=== PATIENT | male | born 1940 | race Caucasian/White ===

== ENCOUNTER → 2016-02-26 | Outpatient (CLI) | payer OTHER ==
[~2016-02-26] MED LIST: ACET1TAB84 PO; ACET500C6 PO; AMLO-110 PO; AMLO2.5T PO; ASPI81TA28 PO; ATRINS NEB; BECL0.3A INH; BECL1AER5 NAE; CALC-354; CALC500C70 PO; CIPR1TAB11 PO; CYAN10004 PO; DVN80 PO; ERGO500037 PO; FEBU40TA PO; FINA5TAB PO; FLUN0.02; FLV1 PO; FOLI1TAB7 PO; FURO20TA PO; HYDR25SU20 PR; INSDGIPEN SC; INSU100I2 SC; INSUINJ4 SC; IPRA17AE2 INH; LEUP30IN3 IM; METH2.5T PO; OXYB5TAB74 PO; OXYC1TAB3 PO; PRAMCRE2 TOP; PRLSR20 PO; PRS5 PO; TAMS0.4C38 PO; TAMS0.4C59 PO; THEO200T27 PO; VALS320T PO; VTMD1000 PO; [UNRECOGNIZED DRUG - OTHER]
[2016-02-26 09:42] LABS: BASO % 0.3 %; BASO ABS # 0.02 K/uL (0-0.2); COMPLETE YES; EOS % 1.8 %; HEMATOCRIT 43.2 % (42-52); IG% 0.4 %; LYMPH ABS # 1.34 K/uL (1.2-3.4); MEAN CELL VOLUME 87.4 fL (80-100); MEAN CORPUSCULAR HEMOGLOBIN 30.2 pg (25-34); MEAN CORPUSCULAR HGB CONC 34.5 g/dl (32-36); MEAN PLATELET VOLUME 10.5 fL (7.4-10.4); MONO % 6.7 %; NEUT % 70.8 %; PLATELET COUNT 201 K/uL (130-400); RED BLOOD COUNT 4.94 M/uL (4.7-6.1)
[2016-02-26 10:29] LABS: ALT/SGPT 27 U/L (12-78); AST/SGOT 20 U/L (15-37); BLOOD UREA NITROGEN 23 mg/dl (7-18); BUN/CREATININE RATIO 14.1 (10-20); CALCIUM 9.2 mg/dl (8.5-10.1); CARBON DIOXIDE 25 mmol/L (21-32); CHLORIDE 105 mmol/L (98-107); GLUCOSE 265 mg/dl (70-99); POTASSIUM 3.9 mmol/L (3.5-5.1); SODIUM 140 mmol/L (136-145); URINE APPEARANCE CLEAR (CLEAR); URINE BILIRUBIN NEG (NEG); URINE COLOR YELLOW; URINE NITRITE NEG (NEG); UROBILINOGEN NEG (NEG); ZZUR CULT IF INDIC CLEAN CATCH NO
[2016-02-26 10:31] LABS: ALB/GLOB RATIO 1.1 (0.9-2); ALKALINE PHOSPHATASE 91 U/L (45-117)
[2016-02-26 10:33] LABS: MANUAL MICROSCOPIC REQUIRED? NO; REVIEW REQ? NO
== END | disposition home or self-care (01) ==
LOC: C.LAB1850 08:50
PROVIDERS: ATTEND Internal Medicine Pulmonary Disease
DX: I10 Essential (primary) hypertension (principal)

== ENCOUNTER → 2016-03-18 | Day surgery (SDC) | payer OTHER ==
[2016-03-04 13:16] VITALS: BMI 29.0
--- NOTE | 2016-03-04 14:16 | PAT Medication Instructions ---
Service Date Mar 04, 2016. Current Home Medication List Acetaminophen (Acetaminophen), 2 TAB PO QAM Amlodipine (Norvasc), 2.5 MG PO QDD Aspirin (Aspirin Ec), 81 MG PO QPM Beclomethasone Dipropionate (Qvar), 2 PUFFS INH BID Calcium/Vitamin D (Os-Liu 500 Plus D), 1 TAB PO QAM Ciprofloxacin Tab (Cipro), 500 MG PO BID Cyanocobalamin (Vitamin B-12 1000 Mcg), 1,000 MCG PO QAM Febuxostat (Uloric), 40 MG PO QAM Finasteride (Proscar), 5 MG PO QAM Flunisolide (Nasal) (Flunisolide), for SEASONAL ALLGERIES Folic Acid (Folvite *), 1 MG PO QAM Furosemide (Lasix), 20 MG PO QAM Hydrocortisone Acetate (Rectal (Anusol-Hc), 25 MG NV BID PRN for hemroids Insulin Glargine (Lantus Solostar Pen), 21 UNITS SC HS Insulin Lispro (Human) (Humalog Kwikpen), 0 SC UD Ipratropium [place] Hfa (Atrovent Hfa), 2 PUFFS INH QID PRN for Shortness of Breath Methotrexate (Methotrexate), 2.5 MG PO EVERY OTHER WEEK Omeprazole (Prilosec), 20 MG PO QAM Ncnwkziot-Pckigouzocgwq-Gxvgcm (Preparation H), 1 APPLN TOP DIRECTED PRN for hemroids Tamsulosin Hcl (Flomax), 0.8 MG PO HS Theophylline Ext Rel (Nick-Dur Ext Rel), 400 MG PO BID Valsartan (Diovan *), 320 MG PO QAM Medication Instructions For Your Scheduled Surgery Ciprofloxacin Tab (Cipro), 500 MG PO BID (per surgeon instructions) Methotrexate (Methotrexate), 2.5 MG PO EVERY OTHER WEEK (patient will check with prescribing physician instructions) - Hold the following medications 7 days prior to surgery per surgeon instructions: Aspirin (Aspirin Ec), 81 MG PO QPM - Hold the following medications 24 hours prior to surgery: Btsdwqhfj-Grzjuewnmkscy-Nttwid (Preparation H), 1 APPLN TOP DIRECTED PRN for hemroids Hydrocortisone Acetate (Rectal (Anusol-Hc), 25 MG NV BID PRN for hemroids - Hold the following medications the morning of surgery: Valsartan (Diovan *), 320 MG PO QAM Insulin Lispro (Human) (Humalog Kwikpen), 0 SC UD Folic Acid (Folvite *), 1 MG PO QAM Furosemide (Lasix), 20 MG PO QAM Cyanocobalamin (Vitamin B-12 1000 Mcg), 1,000 MCG PO QAM Calcium/Vitamin D (Os-Liu 500 Plus D), 1 TAB PO QAM - Take the following medications the morning of surgery with a sip of water: Theophylline Ext Rel (Nick-Dur Ext Rel), 400 MG PO BID Omeprazole (Prilosec), 20 MG PO QAM Ipratropium [place] Hfa (Atrovent Hfa), 2 PUFFS INH QID PRN for Shortness of Breath Flunisolide (Nasal) (Flunisolide), for SEASONAL ALLGERIES (if needed) Finasteride (Proscar), 5 MG PO QAM Febuxostat (Uloric), 40 MG PO QAM Beclomethasone Dipropionate (Qvar), 2 PUFFS INH BID Acetaminophen (Acetaminophen), 2 TAB PO QAM (if needed) - Take the following medications as scheduled the night before surgery: Theophylline Ext Rel (Nick-Dur Ext Rel), 400 MG PO BID Tamsulosin Hcl (Flomax), 0.8 MG PO HS Ipratropium [place] Hfa (Atrovent Hfa), 2 PUFFS INH QID PRN for Shortness of Breath Insulin Lispro (Human) (Humalog Kwikpen), 0 SC UD Insulin Glargine (Lantus Solostar Pen), 21 UNITS SC HS Flunisolide (Nasal) (Flunisolide), for SEASONAL ALLGERIES (if needed) Beclomethasone Dipropionate (Qvar), 2 PUFFS INH BID. Amlodipine (Norvasc), 2.5 MG PO QDD If you have any questions please call us at [phone] or [phone] ( [place]) or [phone]
--- NOTE | 2016-03-04 14:51 | DIAGNOSTIC IMAGING REPORT ---
CHEST 2 VIEWS ROUTINE CLINICAL HISTORY: Preoperative chest COMPARISON STUDY: December 13, 2015 FINDINGS: The cardiac and mediastinal contours are normal. There is no evidence of focal pulmonary consolidation. There is no evidence of failure. No pleural effusions are visualized.[ There is an old left AC joint separation. IMPRESSION: No active disease in the chest. Electronically signed by: Mina Harrington M.D. 03/04/2016 2:49 PM Dictated Date/Time: 03/04/2016 2:49 PM
[2016-03-04 15:10] LABS: MANUAL MICROSCOPIC REQUIRED? NO; REVIEW REQ? NO; URINE APPEARANCE CLEAR (CLEAR); URINE BILIRUBIN NEG (NEG); URINE COLOR YELLOW; URINE NITRITE NEG (NEG); URINE PH 5.5 (4.5-7.5); URINE SPECIFIC GRAVITY 1.012 (1.000-1.030); UROBILINOGEN NEG (NEG)
[~2016-03-18] VITALS: Ht 170.2 cm; Wt 86.2 kg
[~2016-03-18] MED LIST changes: -ACET1TAB84 PO; +ATROPINE SULFATE 0.1 MG/ML 5ML SYR IV PRN; +CIPROFLOXACIN / D5W 400 MG IV SCH; +EpHEDrine SULFATE INJ 50 MG/ML AMP IV PRN; +FENTANYL CITRATE INJ 50 MCG/1 ML 2 ML VIAL ONE; +GENTAMICIN INJ 120 MG in DEXTROSE 5% 100ML 100 ML IV ONE; +LACTATED RINGER'S 1000ML 1,000 ML IV SCH; +LIDOCAINE HCL 2% 2 ML VIAL (20MG/ML) ONE; +MIDAZOLAM HCL 1 MG/ML 2ML VIAL ONE; +ONDANSETRON INJ 2 MG/ML 2 ML VIAL ONE; +OXYCODONE/ACETAMINOPHEN 5-325 TAB PO PRN; +PROPOFOL IV EMULSION 10 MG/ML 20 ML VIAL IV ONE; -VTMD1000 PO
[2016-03-18 06:41] VITALS: BP 159/85; PULSE 74; TEMP 36.9; O2SAT 94; Ht 170.2 cm; Wt 86.2 kg
--- NOTE | 2016-03-18 07:03 | History & Physical Bridge Note ---
H&P Re-Evaluation Bridge Note: I have examined the patient, reviewed the History & Physical and in the interval since the performance of the History & Physical I have noted the following changes of clinical significance: No changes noted
--- NOTE | 2016-03-18 08:18 | Anesthesiology Progress Note ---
Anesthesia Post Op Note Date & Time Mar 18, 2016 at 08:18 Vital Signs Pain Intensity: 0 Vital Signs Past 12 Hours Date Time Temp Pulse Resp B/P Pulse Ox O2 Delivery O2 Flow Rate FiO2 03/18/16 08:13 36.4 143/80 03/18/16 08:11 64 15 99 03/18/16 08:11 63 15 03/18/16 08:06 69 16 98 03/18/16 08:06 68 16 03/18/16 08:04 136/84 03/18/16 08:01 36.3 69 16 136/84 97 Room Air 03/18/16 06:41 36.9 74 18 159/85 94 Room Air Notes Mental Status: alert / awake / arousable, participated in evaluation Pt Amnestic to Procedure: Yes Nausea / Vomiting: adequately controlled Pain: adequately controlled Airway Patency, RR, SpO2: stable & adequate BP & HR: stable & adequate Hydration State: stable & adequate Anesthetic Complications: no major complications apparent
--- NOTE | 2016-03-18 08:19 | [facility] Post Operative Brief Note ---
Immediate Operative Summary Operative Date Mar 18, 2016. Pre-Operative Diagnosis Elevated Prostate Specific Antigen and PIRAD-5 prostate lesion on MRI Post-Operative Diagnosis Elevated Prostate Specific Antigen and PIRADS-5 prostate lesion on MRI Procedure(s) Performed Volumetric Prostate Analysis and Saturation Prostate Biopsy Under Anesthesia Surgeon Dr. Kevin Kate Activity Director Surgeon(s) None Estimated Blood Loss 10 cc Findings 69.9 cc prostate on TRUS, 40 cores taken 6 base, 4 mid, 4 apex, 6 anterior on each side Specimens A: [place] of right prostate B: Right mid prostate C: [place] of right prostate D: Right anterior prostate E: [place] of left prostate F: Left mid prostate G: [place] of left prostate H: Left anterior prostate Drains NA Anesthesia MAC Complication(s) None Disposition Recovery Room / PACU
--- NOTE | 2016-03-18 08:23 | Discharge Instructions ---
Discharge Instructions Admission Reason for Admission: Elevated Prostate Specific Antigen Discharge Discharge Diagnosis / Problem: Elevated PSA, PIRADS 5 nodule s/p biopsy under anesthesia Discharge Goals Goal(s): Diagnostic testing Activity Recommendations Activity Limitations: per Instructions/Follow-up section Lifting Limitations: gradually increase as tolerated Exercise/Sports Limitations: rest today May Resume Sexual Activity: when tolerated Shower/Bathe: no limitations Driving or Machine Use: resume 1 day after discharge . Instructions / Follow-Up Instructions / Follow-Up As scheduled in office for f/u and pathology discussion Discharge Diet Recommended Diet: Regular Diet (good fluid intake) Procedures Procedures Performed: Volumetric Prostate Analysis and Saturation Prostate Biopsy Under Anesthesia Pending Studies Studies pending at discharge: yes List of pending studies: Path report Laboratory Results Hemoglobin A1c Test 01/23/16 08:41 Range/Units Estimated Average Glucose 177 mg/dl Hemoglobin A1c 7.8 H 4.5-5.6 % Lipid Panel Test 12/25/15 13:29 Range/Units Triglycerides Level 99 0-150 mg/dl Cholesterol Level 171 0-200 mg/dl HDL Cholesterol 80 mg/dl Cholesterol/HDL Ratio 2.1 LDL Cholesterol, Calculated 71 mg/dl Medical Emergencies . Who to Call and When: Medical Emergencies: If at any time you feel your situation is an emergency, please call 911 immediately. . Non-Emergent Contact Non-Emergency issues call your: Urologist Call Non-Emergent contact if: you have a fever, temperature is above 101, your pain is not controlled, your pain is worsening, your pain is unusual for you, your pain is concerning you, wound has increased drainage, wound has increased redness, you have any medication questions . . "Provider Documentation" section prepared by Kevin Kate. VTE Core Measure Inpt VTE Proph given/why not?: SCD's [place] Drug Monitoring Program Search Results: patient reviewed within database, no issues identified
[2016-03-18 08:35] VITALS: BP 146/79; PULSE 60; TEMP 36.5; O2SAT 97
[2016-03-18 08:55] VITALS: BP 162/80; PULSE 71; O2SAT 97
[2016-03-18 09:35] VITALS: BP 154/79; PULSE 73; TEMP 36.4; O2SAT 97
--- NOTE | 2016-03-18 10:15 | OPERATIVE REPORT ---
DATE OF OPERATION: 03/18/2016 PREOPERATIVE DIAGNOSIS: Elevated and rising PSA with a PI-RADS 5 prostate lesion on prostate MRI. POSTOPERATIVE DIAGNOSIS: Same. PROCEDURE: Transrectal ultrasound guided volumetric analysis and saturation prostate biopsy under anesthesia. SURGEON: Dr. Kevin Kate. SHAFT MECHANIC: None. ANESTHESIA: Monitored anesthesia care with sedation. COMPLICATIONS: None. FINDINGS: A 69.9 mL prostate gland, prostate lesion at the anterior transition zone mostly on the left side, over sampling of the prostate noted. Mr. Paulson is a pleasant 76-year-old male with history of an elevated and rising PSA, currently up to 16 corrected for his 5-Alpha Reductase Inhibitor. He has been on preop ciprofloxacin for his prostate biopsy and has undergone prep as planned. Please see H\T\P for further details. IV ciprofloxacin and gentamicin provided for antibiotic coverage today. PROCEDURE: The patient was properly identified and brought into the operative suite. After identification of appropriate consent on the chart, monitored anesthesia care with sedation was initiated. The patient was prepped and draped in a standard fashion for this procedure. full time paramedic-out procedure was followed. Transrectal ultrasound probe was placed per rectum and prostate was evaluated and measured sonographically in 3 dimensions demonstrating a 69.9 mL gland. Seminal vesicles were noted to be undilated with some central calcifications. No intravesical extension of the prostate gland was noted with a normal urethra. Please see images for further details. Using transrectal ultrasound guidance, prostate cores were taken in the following in a sextant template with anterior sampling as follows: Six cores from the base, 4 cores from the mid prostate, 4 cores from the apex and 6 cores from the anterior prostate. Inadequate cores were repeated and the template was followed on both sides. Care was taken to specifically target the areas felt to be suspicious on MRI. After this was complete, transrectal ultrasound pressure was held for 5 minutes to improve transrectal bleeding. Minimal bleeding per urethra was appreciated. The probe was removed, anesthesia was reversed and the patient was transferred to recovery room in stable condition. FOLLOWUP CARE: The patient will be discharged home with a prescription for Roxicodone as necessary for pain. He is to complete his ciprofloxacin as planned. Postoperative appointment to followup of his pathology is confirmed. He is instructed to contact us should he note any fevers, chills, nausea, vomiting or other significant difficulties in the postoperative period. I attest to the content of the Intraoperative Record and any orders documented therein. Any exceptio ns are noted below.
== END | disposition home or self-care (01) ==
LOC: C.ACU 05:42
PROVIDERS: ATTEND Urology
DX: C61 Malignant neoplasm of prostate (principal); N40.0 Benign prostatic hyperplasia without lower urinary tract symptoms; I20.9 Angina pectoris, unspecified; I70.0 Atherosclerosis of aorta; J45.909 Unspecified asthma, uncomplicated; M19.90 Unspecified osteoarthritis, unspecified site; E11.49 Type 2 diabetes mellitus with other diabetic neurological complication; E11.29 Type 2 diabetes mellitus with other diabetic kidney complication; E11.42 Type 2 diabetes mellitus with diabetic polyneuropathy; I10 Essential (primary) hypertension

== ENCOUNTER 2016-03-20 07:14 | Emergency (ER) | payer OTHER ==
[~2016-03-20] VITALS: Ht 170.2 cm; Wt 75.0 kg
[~2016-03-20 07:14] MED LIST changes: -AMLO-110 PO; -ATRINS NEB; -ATROPINE SULFATE 0.1 MG/ML 5ML SYR IV PRN; -BECL1AER5 NAE; -CALC-354; -CIPROFLOXACIN / D5W 400 MG IV SCH; -ERGO500037 PO; -EpHEDrine SULFATE INJ 50 MG/ML AMP IV PRN; -FENTANYL CITRATE INJ 50 MCG/1 ML 2 ML VIAL ONE; -FINA5TAB PO; -FOLI1TAB7 PO; -GENTAMICIN INJ 120 MG in DEXTROSE 5% 100ML 100 ML IV ONE; -INSDGIPEN SC; -LACTATED RINGER'S 1000ML 1,000 ML IV SCH; -LEUP30IN3 IM; -LIDOCAINE HCL 2% 2 ML VIAL (20MG/ML) ONE; -MIDAZOLAM HCL 1 MG/ML 2ML VIAL ONE; -ONDANSETRON INJ 2 MG/ML 2 ML VIAL ONE; -OXYB5TAB74 PO; -OXYCODONE/ACETAMINOPHEN 5-325 TAB PO PRN; -PROPOFOL IV EMULSION 10 MG/ML 20 ML VIAL IV ONE; -TAMS0.4C38 PO; -VALS320T PO; -[UNRECOGNIZED DRUG - OTHER]
[2016-03-20 07:36] VITALS: TEMP 36.8; Ht 170.2 cm; Wt 75.0 kg
--- NOTE | 2016-03-20 07:46 | EMERGENCY ROOM VISIT NOTE ---
History First contact with patient: 07:19 Chief Complaint: UNABLE TO VOID Stated Complaint: CATHETER CAME OUT History of Present Illness The patient is a 76 year old male who presents to the Emergency Room with complaints of Vasquez catheter problem. The patient had a prostate biopsy by Dr. Kate 2 days ago. He was initially able to void until yesterday. He was seen at the office and a Vasquez catheter was placed. The catheter seems to be draining well until last night. He presents to the emergency department stating that the catheter is not draining. He reports distention and discomfort in the suprapubic area. He denies any fever or chills. He denies any pain in his chest or trouble breathing. He denies any other symptoms. Review of Systems A 10 system review of systems was completed with positives and pertinent negatives listed in the HPI. Past Medical/Surgical History Medical Problems: (1) Asthma (2) Diabetes (3) HTN (hypertension) (4) Kidney disease Family History FH: HTN (hypertension) FH: diabetes mellitus FH: heart disease FH: kidney disease Social History Smoking Status: Never Smoker Drug Use: none Marital Status: Occupation Status: retired Current/Historical Medications Scheduled Acetaminophen (Acetaminophen), 2 TAB PO QAM Amlodipine (Norvasc), 5 MG PO DAILY Aspirin (Aspirin Ec), 81 MG PO QPM Beclomethasone Dipropionate (N (Qnasl), 2 SPRY EVY DAILY Calcium/Vitamin D (Os-Liu 500 Plus D), 1 TAB PO QAM Ciprofloxacin Tab (Cipro), 500 MG PO BID Cyanocobalamin (Vitamin B-12 1000 Mcg), 1,000 MCG PO QAM Febuxostat (Uloric), 40 MG PO QAM Finasteride (Proscar), 1 TAB PO QAM Folic Acid (Folvite), 1 TAB PO QAM Furosemide (Lasix), 20 MG PO QAM Insulin Glargine (Lantus Solostar), 21 UNITS SC HS Insulin Lispro (Human) (Humalog Kwikpen), 0 SC UD Ipratropium [place] (Ipratropium [place]), 1 VIAL NEB QID Methotrexate (Methotrexate), 2.5 MG PO EVERY OTHER WEEK Omeprazole (Prilosec), 20 MG PO QAM Tamsulosin Hcl (Flomax), 0.8 MG PO HS Theophylline Ext Rel (Nick-Dur Ext Rel), 400 MG PO BID Valsartan (Diovan), 1 TAB PO DAILY Scheduled PRN Flunisolide (Nasal) (Flunisolide), for SEASONAL ALLGERIES Hydrocortisone Acetate (Rectal (Anusol-Hc), 25 MG [place] BID PRN for hemroids Oxycodone Immediate Rel Tab (Roxicodone Ir), 1-2 TAB PO Q4H PRN for Severe Pain Ugobbqovn-Npeqnxsgpexgh-Wpwcoj (Preparation H), 1 APPLN TOP DIRECTED PRN for hemroids Allergies Coded Allergies: Penicillins (Verified Allergy, Unknown, RASH, 03/18/16) Ranitidine (Verified Allergy, Unknown, RASH, 03/18/16) Tetracyclines (Verified Allergy, Unknown, RASH, 03/18/16) Gabapentin (Verified Adverse Reaction, Unknown, CONFUSION, 03/18/16) Physical Exam Vital Signs Date Time Temp Pulse Resp B/P Pulse Ox O2 Delivery O2 Flow Rate FiO2 03/20/16 08:11 95 16 137/70 96 03/20/16 07:36 36.8 108 16 175/110 95 Room Air Physical Exam VITALS: Vitals are noted on the nurse's note and reviewed by myself. Vital signs stable. GENERAL: This is a 76-year-old male, in no acute distress, nondiaphoretic, well- developed well-nourished. SKIN: The skin was without rashes, erythema, edema, or bruising. There is no tenting of the skin. Capillary reflex less than 2 seconds. HEAD: Normocephalic atraumatic. EARS: External ears are normal in appearance. EYES: Pupils equal round and reactive to light and accommodation. Conjunctivae without injection, sclerae without icterus. Extraocular movements intact. NOSE: Patent, turbinates without inflammation or discharge. MOUTH: Mucous membranes moist. Tonsils are not enlarged. Pharynx without erythema or exudate. Uvula midline. Airway patent. Tongue does not deviate. NECK: Supple without nuchal rigidity. No lymphadenopathy. No thyromegaly. Cervical spine is nontender. No JVD. HEART: Regular rate and rhythm without murmurs gallops or rubs. LUNGS: Clear to auscultation bilaterally without wheezes, rales or rhonchi. No retractions or accessory muscle use. ABDOMEN: Positive bowel sounds x 4. Soft, nontender, without masses or organomegaly. MUSCULOSKELETAL: No muscle atrophy, erythema, or edema noted. Full range of motion in all extremities.Normal gait. Strength 5/5 throughout. NEURO: Patient was alert and oriented to person place and time. No focal neurological deficits. Medical Decision & Procedures Procedure The Vasquez catheter was changed by the emergency department RN. The urine was bloody and there were several clots removed. The catheter was draining well and the patient had complete resolution of his symptoms. ED Course The patient was seen and examined. Previous visits were reviewed. The patient is afebrile and nontoxic in appearance. The patient's Vasquez catheter was replaced and the patient symptoms resolved. The patient does have hematuria with clots and this likely caused an obstruction in the catheter. The catheter is functioning well. He has an appointment with urology on Friday. He should return to the emergency Department with any worsening symptoms. The patient was also seen and examined by who agrees with the assessment and treatment plan. Medical Decision The differential diagnosis includes urinary obstruction, hematuria, neoplasm, urinary tract infection, among others Impression Primary Impression: Urinary catheter (Vasquez) change required Additional Impression: Urinary catheter dysfunction Departure Information Dispostion Home / Self-Care Condition GOOD Referrals Henrry Ochoa M.D. (PCP) Kevin Kate MD, Urology Patient Instructions Catheter Bag Urinary Empty Clean, Catheter Indwelling Urinary Dc, [facility] Additional Instructions Continue your medications as prescribed Keep your appointment with urology as scheduled Return with any worsening symptoms Problem Qualifiers Additional Impression: Urinary catheter dysfunction Encounter type: initial encounter Qualified Codes: T83.018A - Breakdown ( mechanical) of other urinary catheter, initial encounter
--- NOTE | 2016-03-20 07:52 | EMERGENCY ROOM VISIT NOTE ---
ED Visit Note First contact with patient: 07:19 The patient was seen and examined with Claribel Almeida PA-C. I agree with the history, physical and findings. Please see the note for disposition and details.
[2016-03-20] MEDS ORDERED: BECL1AER5 NAE (07:56)
[2016-03-20] MEDS ORDERED: FOLI1TAB7 PO (07:56)
[2016-03-20] MEDS ORDERED: FINA5TAB PO (07:56)
[2016-03-20] MEDS ORDERED: ATRINS NEB (07:56)
[2016-03-20] MEDS ORDERED: INSDGIPEN SC (07:56)
[2016-03-20] MEDS ORDERED: TAMS0.4C38 PO (07:56)
[2016-03-20] MEDS ORDERED: VALS320T PO (07:56)
[2016-03-20 08:11] VITALS: BP 137/70; PULSE 95; O2SAT 96
[2016-05-01] MEDS ORDERED: AMLO-110 PO (10:21)
[2016-05-01] MEDS ORDERED: CALC-354 (10:23)
[2016-08-05] MEDS ORDERED: ERGO500037 PO (08:19)
[2016-08-05] MEDS ORDERED: LEUP30IN3 IM (08:19)
[2016-08-26] MEDS ORDERED: [UNRECOGNIZED DRUG - OTHER] (07:55)
[2016-09-02] MEDS ORDERED: FEBU40TA PO (08:09)
[2016-09-30] MEDS ORDERED: OXYB5TAB74 PO (07:55)
== END 2016-03-20 09:50 | disposition home or self-care (01) ==
LOC: C.EDB 07:15 → C.EDA 09:50
DX: T83.018A Breakdown (mechanical) of other urinary catheter, initial encounter (principal); Y84.6 Urinary catheterization as the cause of abnormal reaction of the patient, or of later complication, without mention of misadventure at the time of the procedure; J45.909 Unspecified asthma, uncomplicated; E11.9 Type 2 diabetes mellitus without complications; I10 Essential (primary) hypertension; Z83.3 Family history of diabetes mellitus; Z82.49 Family history of ischemic heart disease and other diseases of the circulatory system; Z79.4 Long term (current) use of insulin; Z79.82 Long term (current) use of aspirin; Z79.899 Other long term (current) drug therapy

== ENCOUNTER → 2016-03-28 | Outpatient (CLI) | payer OTHER ==
[~2016-03-28] MED LIST changes: +AMLO-110 PO; +ATRINS NEB; +BECL1AER5 NAE; +CALC-354; +ERGO500037 PO; +FINA5TAB PO; +FOLI1TAB7 PO; +INSDGIPEN SC; +LEUP30IN3 IM; +OXYB5TAB74 PO; +TAMS0.4C38 PO; +VALS320T PO; +[UNRECOGNIZED DRUG - OTHER]
== END | disposition home or self-care (01) ==
LOC: C.LABSPEC 17:31
PROVIDERS: ATTEND Nurse Practitioner Adult Health
DX: R33.9 Retention of urine, unspecified (principal)

== ENCOUNTER → 2016-03-29 | Outpatient (CLI) | payer OTHER ==
[~2016-03-29] MED LIST changes: -BECL0.3A INH; -DVN80 PO; -FLV1 PO; -INSUINJ4 SC; -IPRA17AE2 INH; -PRS5 PO; -TAMS0.4C59 PO
[2016-03-29 12:04] LABS: BASO % 0.3 %; BASO ABS # 0.02 K/uL (0-0.2); COMPLETE YES; EOS % 1.9 %; HEMATOCRIT 40.9 % (42-52); IG% 0.3 %; LYMPH % 18.6 %; LYMPH ABS # 1.35 K/uL (1.2-3.4); MEAN CELL VOLUME 86.7 fL (80-100); MEAN CORPUSCULAR HEMOGLOBIN 29.9 pg (25-34); MEAN CORPUSCULAR HGB CONC 34.5 g/dl (32-36); MONO % 7.9 %; PLATELET COUNT 239 K/uL (130-400); RED BLOOD COUNT 4.72 M/uL (4.7-6.1); WHITE BLOOD COUNT 7.24 K/uL (4.8-10.8)
[2016-03-29 12:09] LABS: ALT/SGPT 29 U/L (12-78); BLOOD UREA NITROGEN 16 mg/dl (7-18); BUN/CREATININE RATIO 10.1 (10-20); CALCIUM 9.1 mg/dl (8.5-10.1); CARBON DIOXIDE 26 mmol/L (21-32); CHLORIDE 106 mmol/L (98-107); GLUCOSE 119 mg/dl (70-99); POTASSIUM 3.7 mmol/L (3.5-5.1); SODIUM 141 mmol/L (136-145)
[2016-03-29 12:12] LABS: ALB/GLOB RATIO 1.1 (0.9-2); ALKALINE PHOSPHATASE 88 U/L (45-117); AST/SGOT 21 U/L (15-37)
== END | disposition home or self-care (01) ==
LOC: C.LABPBG 10:37
PROVIDERS: ATTEND Internal Medicine Pulmonary Disease
DX: I10 Essential (primary) hypertension (principal)

== ENCOUNTER → 2016-04-10 | Outpatient (CLI) | payer OTHER ==
--- NOTE | 2016-04-10 15:19 | DIAGNOSTIC IMAGING REPORT ---
WHOLE-BODY NUCLEAR BONE SCAN CLINICAL HISTORY: Urinary tract infection. Prostate cancer. COMPARISON STUDY: Abdominal CT dated 08/02/2014. TECHNIQUE: Three hours following the IV administration of 27.1 mCi of technetium 99m MDP, whole body nuclear bone scan was performed in the anterior and posterior projections. FINDINGS: There is no abnormal osseous tracer deposition identified typical in appearance for bony metastatic disease. Typically degenerative uptake is identified in the shoulders, knees, ankles, and right first metatarsophalangeal joint. Low-level activity in the cervical spine is also typical for degenerative change. There is expected excreted activity within the renal collecting system and bladder. IMPRESSION: There is no abnormal tracer deposition identified typical in appearance for osseous metastatic disease. Electronically signed by: Christ Mendez M.D. 04/10/2016 3:17 PM Dictated Date/Time: 04/10/2016 3:15 PM
== END | disposition home or self-care (01) ==
LOC: C.NUCL 10:56
PROVIDERS: ATTEND Urology
DX: N39.0 Urinary tract infection, site not specified (principal)

== ENCOUNTER → 2016-04-22 | Outpatient (CLI) | payer OTHER ==
[~2016-04-22] MED LIST changes: +SYMIN/8045 INH
[2016-04-22 12:47] LABS: BASO % 0.4 %; BASO ABS # 0.03 K/uL (0-0.2); COMPLETE YES; EOS % 1.4 %; HEMATOCRIT 42.5 % (42-52); IG% 0.5 %; LYMPH ABS # 1.62 K/uL (1.2-3.4); MEAN CELL VOLUME 86.9 fL (80-100); MEAN CORPUSCULAR HEMOGLOBIN 30.1 pg (25-34); MEAN CORPUSCULAR HGB CONC 34.6 g/dl (32-36); MEAN PLATELET VOLUME 10.7 fL (7.4-10.4); MONO % 8.3 %; NEUT % 68.4 %; PLATELET COUNT 222 K/uL (130-400); RED BLOOD COUNT 4.89 M/uL (4.7-6.1); WHITE BLOOD COUNT 7.73 K/uL (4.8-10.8)
[2016-04-22 12:59] LABS: URINE APPEARANCE CLEAR (CLEAR); URINE BILIRUBIN NEG (NEG); URINE COLOR YELLOW; URINE EPITHELIAL CELL AUTO 0-5 /lpf (0-5); URINE NITRITE NEG (NEG); URINE SPECIFIC GRAVITY 1.001 (1.000-1.030); UROBILINOGEN NEG (NEG); ZZUR CULT IF INDIC CLEAN CATCH NO
[2016-04-22 13:01] LABS: MANUAL MICROSCOPIC REQUIRED? NO; REVIEW REQ? NO
[2016-04-22 13:27] LABS: ALT/SGPT 32 U/L (12-78); BLOOD UREA NITROGEN 21 mg/dl (7-18); BUN/CREATININE RATIO 13.7 (10-20); CALCIUM 9.5 mg/dl (8.5-10.1); CARBON DIOXIDE 26 mmol/L (21-32); CHLORIDE 106 mmol/L (98-107); GLUCOSE 156 mg/dl (70-99); POTASSIUM 4.2 mmol/L (3.5-5.1); SODIUM 141 mmol/L (136-145)
[2016-04-22 13:30] LABS: ALKALINE PHOSPHATASE 99 U/L (45-117); AST/SGOT 20 U/L (15-37)
== END | disposition home or self-care (01) ==
LOC: C.LABPBG 10:52
PROVIDERS: ATTEND Internal Medicine Pulmonary Disease
DX: I10 Essential (primary) hypertension (principal)

== ENCOUNTER → 2016-05-24 | Outpatient (CLI) | payer OTHER ==
[~2016-05-24] MED LIST changes: -AMLO2.5T PO; -CALC500C70 PO; -CIPR1TAB11 PO; +DTR/5 PO; -OXYB5TAB74 PO; -OXYC1TAB3 PO
[2016-05-24 16:58] LABS: BASO % 0.1 %; BASO ABS # 0.01 K/uL (0-0.2); COMPLETE YES; EOS % 0.3 %; HEMATOCRIT 39.8 % (42-52); IG% 0.4 %; LYMPH % 8.2 %; LYMPH ABS # 0.77 K/uL (1.2-3.4); MEAN CELL VOLUME 85.2 fL (80-100); MEAN CORPUSCULAR HEMOGLOBIN 30.2 pg (25-34); MEAN CORPUSCULAR HGB CONC 35.4 g/dl (32-36); MEAN PLATELET VOLUME 10.5 fL (7.4-10.4); MONO % 6.4 %; NEUT % 84.6 %; PLATELET COUNT 205 K/uL (130-400); RED BLOOD COUNT 4.67 M/uL (4.7-6.1); WHITE BLOOD COUNT 9.39 K/uL (4.8-10.8)
[2016-05-24 17:04] LABS: URINE APPEARANCE CLEAR (CLEAR); URINE BILIRUBIN NEG (NEG); URINE COLOR YELLOW; URINE EPITHELIAL CELL AUTO 0-5 /lpf (0-5); URINE NITRITE NEG (NEG); URINE SPECIFIC GRAVITY 1.011 (1.000-1.030); UROBILINOGEN NEG (NEG); ZZUR CULT IF INDIC CLEAN CATCH NO
[2016-05-24 17:06] LABS: MANUAL MICROSCOPIC REQUIRED? NO; REVIEW REQ? NO
[2016-05-24 17:15] LABS: ALT/SGPT 38 U/L (12-78); AST/SGOT 27 U/L (15-37); BLOOD UREA NITROGEN 39 mg/dl (7-18); BUN/CREATININE RATIO 20.5 (10-20); CALCIUM 9.1 mg/dl (8.5-10.1); CARBON DIOXIDE 22 mmol/L (21-32); CHLORIDE 109 mmol/L (98-107); GLUCOSE 192 mg/dl (70-99); POTASSIUM 4.4 mmol/L (3.5-5.1); SODIUM 140 mmol/L (136-145)
[2016-05-24 17:18] LABS: ALB/GLOB RATIO 1.2 (0.9-2); ALKALINE PHOSPHATASE 100 U/L (45-117)
[2016-05-25 07:08] LABS: ESTIMATED AVERAGE GLUCOSE 169 mg/dl; HA1C FLAG Normal (Normal)
== END | disposition home or self-care (01) ==
LOC: C.LABPBG 11:44
PROVIDERS: ATTEND Internal Medicine Pulmonary Disease
DX: I10 Essential (primary) hypertension (principal); E11.29 Type 2 diabetes mellitus with other diabetic kidney complication

== ENCOUNTER → 2016-06-20 | Outpatient (CLI) | payer OTHER ==
[2016-06-20 12:40] LABS: BASO % 0.9 %; BASO ABS # 0.06 K/uL (0-0.2); COMPLETE YES; EOS % 2.8 %; HEMATOCRIT 43.1 % (42-52); IG% 0.4 %; LYMPH ABS # 1.71 K/uL (1.2-3.4); MEAN CELL VOLUME 87.4 fL (80-100); MEAN CORPUSCULAR HEMOGLOBIN 29.6 pg (25-34); MEAN CORPUSCULAR HGB CONC 33.9 g/dl (32-36); MEAN PLATELET VOLUME 10.5 fL (7.4-10.4); MONO % 6.3 %; NEUT % 64.6 %; PLATELET COUNT 178 K/uL (130-400); RED BLOOD COUNT 4.93 M/uL (4.7-6.1); WHITE BLOOD COUNT 6.84 K/uL (4.8-10.8)
[2016-06-20 13:02] LABS: ALT/SGPT 39 U/L (12-78); AST/SGOT 31 U/L (15-37); BLOOD UREA NITROGEN 37 mg/dl (7-18); BUN/CREATININE RATIO 20.6 (10-20); CARBON DIOXIDE 26 mmol/L (21-32); CHLORIDE 106 mmol/L (98-107); GLUCOSE 131 mg/dl (70-99); POTASSIUM 4.8 mmol/L (3.5-5.1); SODIUM 139 mmol/L (136-145)
[2016-06-20 13:05] LABS: ALB/GLOB RATIO 1.4 (0.9-2); ALKALINE PHOSPHATASE 90 U/L (45-117); PHOSPHORUS 3.6 mg/dl (2.5-4.9)
[2016-06-20 13:07] LABS: CALCIUM 10.1 mg/dl (8.5-10.1)
[2016-06-20 13:09] LABS: URINE APPEARANCE CLEAR (CLEAR); URINE BILIRUBIN NEG (NEG); URINE COLOR YELLOW; URINE EPITHELIAL CELL AUTO 0-5 /lpf (0-5); URINE NITRITE NEG (NEG); URINE SPECIFIC GRAVITY 1.008 (1.000-1.030); UROBILINOGEN NEG (NEG); ZZUR CULT IF INDIC CLEAN CATCH NO
[2016-06-20 13:15] LABS: URINE TOTAL PROTEIN < 5.0 mg/dl (0-11.9)
[2016-06-20 13:17] LABS: MANUAL MICROSCOPIC REQUIRED? NO; REVIEW REQ? NO
== END | disposition home or self-care (01) ==
LOC: C.LABPBG 11:24
PROVIDERS: ATTEND Internal Medicine Pulmonary Disease
DX: I12.9 Hypertensive chronic kidney disease with stage 1 through stage 4 chronic kidney disease, or unspecified chronic kidney disease (principal); N18.3 Chronic kidney disease, stage 3 (moderate); N25.81 Secondary hyperparathyroidism of renal origin; E55.9 Vitamin D deficiency, unspecified

== ENCOUNTER → 2016-07-22 | Outpatient (CLI) | payer OTHER ==
--- NOTE | 2016-07-23 09:11 | DIAGNOSTIC IMAGING REPORT ---
PELVIS WITHOUT CONTRAST (MRI) CLINICAL HISTORY: Prostate carcinoma. SpaceOAR insertion. COMPARISON STUDY: Outside study dated 01/18/2016 FINDINGS: Imaging was performed for ration therapy purposes to document the position of the hydrogel implant. Hydrogel implant was deployed inferiorly with the bulk of the implant at the inferior aspect of the prostate/prostatic urethral junction. There is deformity of the anterior rectal wall, although it appears that the implant does not reach the serosal surface of the rectum. A portion of the implant appears extruded superiorly and laterally on the right. The anterior rectal wall is 6 mm from the posterior aspect of the prostate. IMPRESSION: The hydrogel implant appears to have been deployed more inferiorly than is typical with the bulk of the implant at the inferior aspect of the prostate/prostatic urethral junction. A portion the implant appears to extrude superiorly and laterally on the right. Electronically signed by: Mina Harrington M.D. 07/22/2016 2:01 PM Dictated Date/Time: 07/22/2016 1:43 PM
== END | disposition home or self-care (01) ==
LOC: C.MRI 11:15
PROVIDERS: ATTEND Physician Assistant Medical
DX: Z51.0 Encounter for antineoplastic radiation therapy (principal); C61 Malignant neoplasm of prostate

== ENCOUNTER → 2016-07-25 | Outpatient (CLI) | payer OTHER ==
[2016-07-25 18:00] LABS: BASO % 0.7 %; BASO ABS # 0.05 K/uL (0-0.2); COMPLETE YES; EOS % 2.2 %; IG% 0.3 %; LYMPH % 21.8 %; LYMPH ABS # 1.47 K/uL (1.2-3.4); MEAN CELL VOLUME 87.4 fL (80-100); MEAN CORPUSCULAR HEMOGLOBIN 29.7 pg (25-34); MEAN CORPUSCULAR HGB CONC 33.9 g/dl (32-36); MEAN PLATELET VOLUME 10.2 fL (7.4-10.4); MONO % 7.9 %; NEUT % 67.1 %; PLATELET COUNT 157 K/uL (130-400); RED BLOOD COUNT 4.35 M/uL (4.7-6.1); WHITE BLOOD COUNT 6.73 K/uL (4.8-10.8)
[2016-07-25 19:00] LABS: ALB/GLOB RATIO 1.1 (0.9-2); ALKALINE PHOSPHATASE 84 U/L (45-117); ALT/SGPT 36 U/L (12-78); AST/SGOT 25 U/L (15-37); BLOOD UREA NITROGEN 29 mg/dl (7-18); BUN/CREATININE RATIO 19.4 (10-20); CALCIUM 9.2 mg/dl (8.5-10.1); CARBON DIOXIDE 24 mmol/L (21-32); CHLORIDE 109 mmol/L (98-107); GLUCOSE 109 mg/dl (70-99); POTASSIUM 4.1 mmol/L (3.5-5.1); SODIUM 142 mmol/L (136-145)
== END | disposition home or self-care (01) ==
LOC: C.LABPBG 12:03
PROVIDERS: ATTEND Internal Medicine Pulmonary Disease
DX: R31.9 Hematuria, unspecified (principal); I10 Essential (primary) hypertension; Z51.0 Encounter for antineoplastic radiation therapy; C61 Malignant neoplasm of prostate

== ENCOUNTER → 2016-08-26 | Outpatient (CLI) | payer OTHER ==
[~2016-08-26] MED LIST changes: -CALC-354; -DTR/5 PO; +OXYB5TAB74 PO
[2016-08-26 12:58] LABS: BASO % 0.2 %; BASO ABS # 0.01 K/uL (0-0.2); COMPLETE YES; EOS % 3.8 %; HEMATOCRIT 36.5 % (42-52); IG% 0.8 %; LYMPH % 13.8 %; LYMPH ABS # 0.69 K/uL (1.2-3.4); MEAN CELL VOLUME 88.4 fL (80-100); MEAN PLATELET VOLUME 9.8 fL (7.4-10.4); MONO % 11.2 %; NEUT % 70.2 %; PLATELET COUNT 119 K/uL (130-400); RED BLOOD COUNT 4.13 M/uL (4.7-6.1); WHITE BLOOD COUNT 5.01 K/uL (4.8-10.8)
[2016-08-26 13:21] LABS: ALT/SGPT 36 U/L (12-78); BLOOD UREA NITROGEN 25 mg/dl (7-18); BUN/CREATININE RATIO 15.7 (10-20); CALCIUM 9.4 mg/dl (8.5-10.1); CARBON DIOXIDE 24 mmol/L (21-32); CHLORIDE 109 mmol/L (98-107); GLUCOSE 167 mg/dl (70-99); POTASSIUM 4.3 mmol/L (3.5-5.1); SODIUM 141 mmol/L (136-145)
[2016-08-26 13:24] LABS: ALB/GLOB RATIO 1.1 (0.9-2); ALKALINE PHOSPHATASE 76 U/L (45-117); AST/SGOT 24 U/L (15-37)
[2016-08-26 13:26] LABS: ESTIMATED AVERAGE GLUCOSE 180 mg/dl; HA1C FLAG Normal (Normal)
== END | disposition home or self-care (01) ==
LOC: C.LABPBG 09:31
PROVIDERS: ATTEND Nurse Practitioner Family
DX: R31.9 Hematuria, unspecified (principal); I10 Essential (primary) hypertension; E11.29 Type 2 diabetes mellitus with other diabetic kidney complication; Z51.0 Encounter for antineoplastic radiation therapy; C61 Malignant neoplasm of prostate

== ENCOUNTER → 2016-11-14 | Outpatient (CLI) | payer OTHER ==
[~2016-11-14] MED LIST changes: +DTR/5 PO; -OXYB5TAB74 PO; -[UNRECOGNIZED DRUG - OTHER]
[2016-11-14 14:46] VITALS: BP 139/72; PULSE 77; TEMP 36.6; O2SAT 97
--- NOTE | 2016-11-14 16:19 | Radiation Oncology Follow-Up ---
Radiation Oncology Follow-Up Date of Visit Nov 14, 2016. Reason For Visit One-month follow-up and cancer survivorship care plan Radiation Completion Date 10/08/16 Diagnosis (1) Prostate cancer Status: Acute Onset Date: 03/18/2016 Location: both lobes of the prostate Histology Subtype: adenocarcinoma Stage: ll Permanent Comment: Rising PSA, pretreatment PSA 8.300 corrected to 16.6 Status post ultrasound-guided biopsy 03/18/2016 Adenocarcinoma the prostate [place] 3+4, 4+3, and 4+4 Prostate volume 69.9 Prostate density 0.237 Hormonal suppression initiated 05/21/2016 plan for this to continue 18-28 months Status post placement of gold fiducial markers and Space OAR Status post completion of radiation therapy 10/08/2016 received 8100 cGy VMAT Last Edited By: Ann Esquivel on Nov 14, 2016 16:15 History of Present Illness Mr. Paulson is a 76-year-old male who initially presented with an elevated PSA of 4.06 on 12/03/2013 who is been on Proscar for multiple years. The patient subsequently had a repeat PSA on 09/23/2014 that was 5.45. The patient again had a repeat PSA was elevated on 04/25/2015 to 7.120. The patient was referred to Dr. Kevin Kate and he recommended a transrectal ultrasound-guided biopsy of the prostate gland. The patient underwent a transrectal ultrasound-guided biopsy on 05/31/2015 which revealed no evidence of prostate cancer. More recently, the patient had a repeat PSA by his primary care physician on 2015 dose 8.30. Due to the elevated PSA, Dr. Kate ultimately recommended the patient proceed with a prostate MRI with Confirm MDX (results are unavailable). As per Dr. Kate's notes, the MRI of the prostate did reveal a PIRADS-5 lesion in the anterior apex transitional zone. Dr. Kate proceeded with a repeat biopsy on 03/18/2016 which revealed prostate adenocarcinoma involving the right mid, right apex, right anterior and left anterior regions of the prostate gland. At the time of the biopsy, Dr. Kate measured the prostate gland to be 69.9 cc. The highest Sarita score was 4+4 in 2/5 cores. In total, 5/20 cores were positive for prostate adenocarcinoma. Following the biopsy, the patient did have some urinary retention which required irrigation as well as a temporary Vasquez catheter. The patient did have a bone scan completed on which revealed no evidence of bony metastatic disease. Dr. Kate discuss treatment options including surgery and radiation therapy. We are now seeing the patient in consultation discuss the role of radiation therapy. Today, the patient is doing much better then following his prostate biopsy. His IPSS score is 9/35. His epic quality of life score is 19/60. He denies any further hematuria or difficulty with urination. He has no bleeding per rectum or other complaints. Options of treatment were reviewed with him. Ultimately the decision was to undergo hormone suppression. He had gold fiducial markers placed as well as Space OAR. He then underwent radiation therapy with volumetric modulated arc radiation therapy. He received 8100 cGy. This was completed 10/08/2016. Interim History He's been doing well over the past month. Today he gave an AUA score of 6.5. His AUA score at the end of treatment was 10.5. He continues on tamsulosin once daily. He completed and expanded prostate cancer index composite for clinical practice and gave a score of one of 12 and urinary incontinence symptoms. He gave a score of one of 12 and urinary irritation symptoms. He gave a score of 0 12 and bowel symptoms. He gave a score of 8 of 12 and sexual symptoms. He gave a score of 2 of 12 and hormonal vitality symptoms. His total was 12 of 60. He continues on hormone suppression. This is being given at urology. His last injection was 09/28/2016. Allergies Coded Allergies: Penicillins (Verified Allergy, Unknown, RASH, 03/18/16) Ranitidine (Verified Allergy, Unknown, RASH, 03/18/16) Tetracyclines (Verified Allergy, Unknown, RASH, 03/18/16) Gabapentin (Verified Adverse Reaction, Unknown, CONFUSION, 03/18/16) Home Medications Scheduled Acetaminophen (Acetaminophen), 2 TAB PO QAM Amlodipine (Norvasc), 5 MG PO DAILY Aspirin (Aspirin Ec), 81 MG PO QPM Beclomethasone Dipropionate (N (Qnasl), 2 SPRY EVY PRN Budesonide/Formoterol Fumarate (Symbicort 80/4.5 Inhaler), 2 PUFFS INH BID Cyanocobalamin (Vitamin B-12 1000 Mcg), 1,000 MCG PO QAM Ergocalciferol (Vitamin D 03243 Unit), 1 CAP PO WK Febuxostat (Uloric), 40 MG PO QAM Febuxostat (Uloric), 1 TAB PO DAILY Finasteride (Proscar), 1 TAB PO QAM Folic Acid (Folvite), 1 TAB PO QAM Furosemide (Lasix), 20 MG PO QAM Insulin Glargine (Lantus Solostar), 23 UNITS SC HS Insulin Lispro (Human) (Humalog Kwikpen), 0 SC AC Ipratropium Butler (Ipratropium Butler), 1 VIAL NEB prn Leuprolide Acetate (Lupron Depot), 30 MG IM DIRECTED Methotrexate (Methotrexate), 2.5 MG PO EVERY OTHER WEEK Omeprazole (Prilosec), 20 MG PO QAM Oxybutynin Chloride (Ditropan), 5 MG PO DAILY Tamsulosin Hcl (Flomax), 0.4 MG PO BID Theophylline Ext Rel (Nick-Dur Ext Rel), 400 MG PO BID Valsartan (Diovan), 1 TAB PO DAILY Scheduled PRN Flunisolide (Nasal) (Flunisolide), for SEASONAL ALLGERIES Hydrocortisone Acetate (Rectal (Anusol-Hc), 25 MG [place] BID PRN for hemroids Dmkkbwbze-Zpnduqgeblqbp-Pzucbs (Preparation H), 1 APPLN TOP DIRECTED PRN for hemroids Review of Systems Gastrointestinal: Symptoms: WNL Oral: Symptoms: No Problems Respiratory: Symptoms: WNL, Dry Cough, Moist Cough Other Respiratory: Every now and then productive cough of thick clear sputum Urinary: Symptoms: Nocturia Comments: Nocturia x 3, SEe AUA & EPIC Skin: Symptoms: No Problems Other Skin Symptoms: Bandage on right upper ear - "had cancer removed" Additional Notes: He completed a distress management report and answered "no" to all questions. Physical Exam Vital Signs Date Time Temp Pulse Resp B/P (MAP) Pulse Ox O2 Delivery O2 Flow Rate FiO2 11/14/16 14:46 36.6 77 18 139/72 97 Fatigue: None General Appearance: no apparent distress, + pertinent finding (he has a bandage on his right ear and is status post recent dermatologic surgery) Eyes: normal inspection, EOMI ENT: normal ENT inspection, hearing grossly normal Respiratory/Chest: lungs clear, no respiratory distress, no accessory muscle use Cardiovascular: regular rate, rhythm, no gallop, no murmur Extremities: no pedal edema Neurologic/Psychiatric: no motor/sensory deficits, alert, normal mood/affect Skin: warm/dry Laboratory Studies Test 08/26/16 09:34 09/24/16 09:42 10/24/16 09:52 11/14/16 14:56 Estimated Average Glucose 180 mg/dl Hemoglobin A1c 7.9 % (4.5-5.6) White Blood Count 6.56 K/uL (4.8-10.8) 5.97 K/uL (4.8-10.8) Red Blood Count 3.96 M/uL (4.7-6.1) 3.81 M/uL (4.7-6.1) Hemoglobin 11.7 g/dL (14.0-18.0) 11.9 g/dL (14.0-18.0) Hematocrit 35.8 % (42-52) 35.3 % (42-52) Mean Corpuscular Volume 90.4 fL (80-100) 92.7 fL (80-100) Mean Corpuscular Hemoglobin 29.5 pg (25-34) 31.2 pg (25-34) Mean Corpuscular Hemoglobin Concent 32.7 g/dl (32-36) 33.7 g/dl (32-36) Platelet Count 222 K/uL (130-400) 213 K/uL (130-400) Mean Platelet Volume 9.3 fL (7.4-10.4) 10.2 fL (7.4-10.4) Neutrophils (%) (Auto) 76.1 % 76.5 % Lymphocytes (%) (Auto) 7.2 % 8.5 % Monocytes (%) (Auto) 9.9 % 9.4 % Eosinophils (%) (Auto) 5.3 % 4.4 % Basophils (%) (Auto) 0.6 % 0.5 % Neutrophils # (Auto) 4.99 K/uL (1.4-6.5) 4.57 K/uL (1.4-6.5) Lymphocytes # (Auto) 0.47 K/uL (1.2-3.4) 0.51 K/uL (1.2-3.4) Monocytes # (Auto) 0.65 K/uL (0.11-0.59) 0.56 K/uL (0.11-0.59) Eosinophils # (Auto) 0.35 K/uL (0-0.5) 0.26 K/uL (0-0.5) Basophils # (Auto) 0.04 K/uL (0-0.2) 0.03 K/uL (0-0.2) RDW Standard Deviation 52.9 fL (36.4-46.3) 50.9 fL (36.4-46.3) RDW Coefficient of Variation 16.0 % (11.5-14.5) 14.9 % (11.5-14.5) Immature Granulocyte % (Auto) 0.9 % 0.7 % Immature Granulocyte # (Auto) 0.06 K/uL (0.00-0.02) 0.04 K/uL (0.00-0.02) Sodium Level 140 mmol/L (136-145) 137 mmol/L (136-145) Potassium Level 3.7 mmol/L (3.5-5.1) 4.1 mmol/L (3.5-5.1) Chloride Level 108 mmol/L (98-107) 108 mmol/L (98-107) Carbon Dioxide Level 24 mmol/L (21-32) 22 mmol/L (21-32) Anion Gap 8.0 mmol/L (3-11) 7.0 mmol/L (3-11) Blood Urea Nitrogen 15 mg/dl (7-18) 27 mg/dl (7-18) Creatinine 1.40 mg/dl (0.60-1.40) 1.70 mg/dl (0.60-1.40) Estimated GFR () 55.4 43.8 Estimated GFR (Non- 47.8 37.8 BUN/Creatinine Ratio 10.9 (10-20) 15.9 (10-20) Random Glucose 170 mg/dl (70-99) 177 mg/dl (70-99) Calcium Level 9.5 mg/dl (8.5-10.1) 9.5 mg/dl (8.5-10.1) Total Bilirubin 0.4 mg/dl (0.2-1) 0.3 mg/dl (0.2-1) Aspartate Amino Transferase (AST) 16 U/L (15-37) 23 U/L (15-37) Alanine Aminotransferase (ALT) 35 U/L (12-78) 29 U/L (12-78) Alkaline Phosphatase 98 U/L (45-117) 98 U/L (45-117) Total Protein 7.4 gm/dl (6.4-8.2) 7.5 gm/dl (6.4-8.2) Albumin 3.6 gm/dl (3.4-5.0) 3.6 gm/dl (3.4-5.0) Globulin 3.8 gm/dl (2.5-4.0) 3.9 gm/dl (2.5-4.0) Albumin/Globulin Ratio 0.9 (0.9-2) 0.9 (0.9-2) Prostate Specific Antigen 0.023 ng/ml (0.000-4.000) Assessment & Plan Plan: A PSA was drawn today. Patient was notified of the results. He was seen today by Dr. Klein. We asked him to return to our office in 6 months. He'll continue regular follow-up with Dr. Kate. He has an appointment scheduled. Today we completed a cancer survivorship care plan. A copy of the document was given to the patient. He was given a survivorship booklet. He may call our office if he has any questions or concerns in the interim. Assessment & Plan (Attending) ADDENDUM: I agree with note created by Ann Esquivel PA-C. I reviewed the patient's chart and information with her. I have examined and evaluated the patient. I reviewed relevant clinical information and answered the patient's and /or family's questions. SOCIAL WORK SPECIALIST Total Time In Follow-Up I spent 20 minutes speaking to the patient performing examination. I spent 20 minutes reviewing information, preparing the survivorship document, and completing this note. Total Time (Attending) In Follow-Up I spent 15 minutes examining and counseling the patient. SOCIAL WORK SPECIALIST Copy To Henrry Ochoa M.D.; Kevin Kate MD, Urology
== END | disposition home or self-care (01) ==
LOC: C.ONC 14:39
PROVIDERS: ATTEND Physician Assistant Medical
DX: Z08 Encounter for follow-up examination after completed treatment for malignant neoplasm (principal); Z92.3 Personal history of irradiation; Z85.46 Personal history of malignant neoplasm of prostate

== ENCOUNTER → 2016-12-24 | Outpatient (CLI) | payer OTHER ==
[2016-12-24 12:11] LABS: URINE APPEARANCE CLEAR (CLEAR); URINE BILIRUBIN NEG (NEG); URINE COLOR YELLOW; URINE EPITHELIAL CELL AUTO 0-5 /lpf (0-5); URINE NITRITE NEG (NEG); URINE SPECIFIC GRAVITY 1.015 (1.000-1.030); UROBILINOGEN NEG (NEG)
[2016-12-24 12:13] LABS: MANUAL MICROSCOPIC REQUIRED? NO; REVIEW REQ? NO
[2016-12-24 13:00] LABS: CHOLESTEROL/HDL RATIO 2.9; THYROID STIMULATING HORMONE 0.846 uIu/ml (0.300-4.500)
[2016-12-24 13:05] LABS: ESTIMATED AVERAGE GLUCOSE 174 mg/dl; HA1C FLAG Normal (Normal)
[2016-12-24 13:20] LABS: CREATININE, URINE 27.9 mg/dl; URINE TOTAL PROTEIN < 5.0 mg/dl (0-11.9)
== END | disposition home or self-care (01) ==
LOC: C.LABPBG 10:35
PROVIDERS: ATTEND Internal Medicine Nephrology
DX: I12.9 Hypertensive chronic kidney disease with stage 1 through stage 4 chronic kidney disease, or unspecified chronic kidney disease (principal); N18.3 Chronic kidney disease, stage 3 (moderate); D64.9 Anemia, unspecified; E11.29 Type 2 diabetes mellitus with other diabetic kidney complication; C61 Malignant neoplasm of prostate; E55.9 Vitamin D deficiency, unspecified

== ENCOUNTER → 2017-02-24 | Outpatient (CLI) | payer OTHER ==
[~2017-02-24] MED LIST changes: -FOLI1TAB7 PO; +FOLI1TAB8 PO
== END | disposition home or self-care (01) ==
LOC: C.LABPBG 09:43
PROVIDERS: ATTEND Urology
DX: R33.9 Retention of urine, unspecified (principal); N39.41 Urge incontinence; R35.0 Frequency of micturition; C61 Malignant neoplasm of prostate

== ENCOUNTER → 2017-04-24 | Outpatient (CLI) | payer OTHER ==
[2017-04-24 12:54] LABS: HEMOGLOBIN A1C 7.6 % (4.5-5.6)
== END | disposition home or self-care (01) ==
LOC: C.LABPBG 10:48
PROVIDERS: ATTEND Nurse Practitioner Family
DX: E11.29 Type 2 diabetes mellitus with other diabetic kidney complication (principal)

== ENCOUNTER → 2017-05-15 | Outpatient (CLI) | payer OTHER ==
[~2017-05-15] MED LIST changes: +CYAN10005 PO; +DOCU-94 PO; +FRS/40 PO; +LPT20; +saline nasal spray
[2017-05-15 13:30] VITALS: BP 116/67; PULSE 83; TEMP 36.3; O2SAT 94
--- NOTE | 2017-05-15 16:28 | Radiation Oncology Follow-Up ---
Radiation Oncology Follow-Up Date of Visit May 15, 2017. Reason For Visit Six-month follow-up Radiation Completion Date 10/08/16 Diagnosis (1) Prostate cancer Status: Acute Onset Date: 03/18/2016 Location: Both lobes of the prostate Histology Subtype: Adenocarcinoma Stage: ll Permanent Comment: Rising PSA, pretreatment PSA 8.300 corrected to 16.6 Status post ultrasound-guided biopsy 03/18/2016 Adenocarcinoma the prostate [place] 3+4, 4+3, and 4+4 Prostate volume 69.9 Prostate density 0.237 Hormonal suppression initiated 05/21/2016 plan for this to continue 18-28 months Status post placement of gold fiducial markers and Space OAR Status post completion of radiation therapy 10/08/2016 received 8100 cGy VMAT Last Edited By: Ann Esquivel on Nov 14, 2016 16:15 History of Present Illness Mr. Paulson presented with an elevated PSA of 4.06 on 12/03/2013 who is been on Proscar for multiple years. The patient subsequently had a repeat PSA on 2014 that was 5.45. The patient again had a repeat PSA was elevated on 2015 to 7.120. The patient was referred to Dr. Kevin Kate and he recommended a transrectal ultrasound-guided biopsy of the prostate gland. The patient underwent a transrectal ultrasound-guided biopsy on 05/31/2015 which revealed no evidence of prostate cancer. More recently, the patient had a repeat PSA by his primary care physician on 11/27/2015 dose 8.30. Due to the elevated PSA, Dr. Kate ultimately recommended the patient proceed with a prostate MRI with Confirm MDX (results are unavailable). As per Dr. Kate's notes, the MRI of the prostate did reveal a PIRADS-5 lesion in the anterior apex transitional zone. Dr. Kate proceeded with a repeat biopsy on 2016 which revealed prostate adenocarcinoma involving the right mid, right apex , right anterior and left anterior regions of the prostate gland. At the time of the biopsy, Dr. Kate measured the prostate gland to be 69.9 cc. The highest Mclean score was 4+4 in 2/5 cores. In total, 5/20 cores were positive for prostate adenocarcinoma. Following the biopsy, the patient did have some urinary retention which required irrigation as well as a temporary Vasquez catheter. The patient did have a bone scan completed on 04/10/2016 which revealed no evidence of bony metastatic disease. Dr. Kate discuss treatment options including surgery and radiation therapy. We are now seeing the patient in consultation discuss the role of radiation therapy. Today, the patient is doing much better then following his prostate biopsy. His IPSS score is 9/35. His epic quality of life score is 19/60. He denies any further hematuria or difficulty with urination. He has no bleeding per rectum or other complaints. Options of treatment were reviewed with him. Ultimately the decision was to undergo hormone suppression. He had gold fiducial markers placed as well as Space OAR. He then underwent radiation therapy with volumetric modulated arc radiation therapy. He received 8100 cGy. This was completed 10/08/2016. Interim History He is doing well from urinary standpoint. He gave an AUA score of 6. He completed and expanded prostate cancer index composite for clinical practice and gave a score of 0 of 12 and urinary incontinence symptoms. He gave a score of 0 of 12 and urinary irritation symptoms. He gave a score of 1 of 12 and bowel symptoms. He gave a score of 12 of 12 and sexual symptoms. He gives score of 3 of 12 and hormonal vitality symptoms his total was 15 of 60. He has continued to take tamsulosin twice daily. We have discussed at his last visit decreasing the dose but he has continued to take this twice daily. He continues on Lupron every 4 months. He had a complaint today of neck discomfort he has had this for a very long period of time he has had physical therapy and also has seen a chiropractor for this in the past. He has had recheck PSAs here and at the [place] these are all very similar less than 0.010. He does feel that the Lupron affects his blood sugar he is trying to be careful about his diet to keep the blood sugars down. He developed an area of skin irritation at the tailbone he saw Dr. Ochoa who prescribed a cream. Allergies Coded Allergies: Penicillins (Verified Allergy, Unknown, RASH, 03/18/16) Ranitidine (Verified Allergy, Unknown, RASH, 03/18/16) Tetracyclines (Verified Allergy, Unknown, RASH, 03/18/16) Gabapentin (Verified Adverse Reaction, Unknown, CONFUSION, 03/18/16) Home Medications Scheduled Acetaminophen (Acetaminophen), 2 TAB PO QAM Amlodipine (Norvasc), 5 MG PO DAILY Aspirin (Aspirin Ec), 81 MG PO QPM Atorvastatin (Lipitor), DAILY Beclomethasone Dipropionate (N (Qnasl), 2 SPRY EVY PRN Budesonide/Formoterol Fumarate (Symbicort 80/4.5 Inhaler), 2 PUFFS INH BID Cyanocobalamin (Vitamin B-12 1000 Mcg), 1,000 MCG PO QAM Cyanocobalamin (Vitamin B-12), 1,000 MCG PO DAILY Docusate Sodium (Colace), 1 CAP PO BID Ergocalciferol (Vitamin D 13191 Unit), 1 CAP PO once a month Febuxostat (Uloric), 40 MG PO QAM Finasteride (Proscar), 1 TAB PO QAM Folic Acid (Folvite), 1 TAB PO QAM Furosemide (Lasix), 40 MG PO DAILY Insulin Glargine (Lantus Solostar), 28 UNITS SC HS Insulin Lispro (Human) (Humalog Kwikpen), 12 SC AC Ipratropium Hobson (Ipratropium Hobson), 1 VIAL NEB prn Leuprolide Acetate (Lupron Depot), 30 MG IM DIRECTED Methotrexate (Methotrexate), 2.5 MG PO one tablet q 3 weeks Omeprazole (Prilosec), 20 MG PO QAM Oxybutynin Chloride (Ditropan), 5 MG PO DAILY Tamsulosin Hcl (Flomax), 0.4 MG PO BID Theophylline Ext Rel (Nick-Dur Ext Rel), 200 MG PO Q12H Valsartan (Diovan), 1 TAB PO DAILY [saline nasal spray], 1 SPRAY NA BID Scheduled PRN Flunisolide (Nasal) (Flunisolide), for SEASONAL ALLGERIES Hydrocortisone Acetate (Rectal (Anusol-Hc), 25 MG [place] BID PRN for hemroids Ofxgsgkzv-Jtxrruzzkrvfv-Egwvnw (Preparation H), 1 APPLN TOP DIRECTED PRN for hemroids Review of Systems Gastrointestinal: Symptoms: WNL Oral: Symptoms: No Problems Respiratory: Symptoms: WNL Urinary: Symptoms: Nocturia Comments: nocturia x2 Skin: Other Skin Symptoms: patient states skin iritated end of spine Dr. Ochoa prescribed cream Physical Exam Vital Signs Date Time Temp Pulse Resp B/P (MAP) Pulse Ox O2 Delivery O2 Flow Rate FiO2 05/15/17 13:30 36.3 83 20 116/67 94 Fatigue: None General Appearance: no apparent distress Eyes: normal inspection, EOMI ENT: normal ENT inspection, hearing grossly normal Neck: no adenopathy, thyroid normal Respiratory/Chest: lungs clear, no respiratory distress, no accessory muscle use Cardiovascular: regular rate, rhythm, no gallop, no murmur Anal / Rectum: Perianal area shows no area of redness or irritation. Gluteal fold has healed. There is no irritation of the skin at the coccyx. Extremities: no pedal edema Neurologic/Psychiatric: no motor/sensory deficits, alert, normal mood/affect Skin: warm/dry Pain Management Patient Reports Pain: Yes Pain Location: Neck Patient Preferred Pain Scale: 0 - 10 Initial Pain Intensity: 9.0 Pain Management Plan Pain management is through his primary care provider. He continues to follow with him in regards to his neck discomfort. Laboratory Laboratory Results: were reviewed, and pertinent findings noted below Laboratory Comments: Reviewed in the interim history Pathology Pathology Results: were reviewed, and pertinent findings noted in HPI Imaging Imaging Studies: not applicable Assessment & Plan Plan: He was seen and examined by Dr. Klein today. Continue regular follow-up with urology and his primary care physician. He continues on hormone suppression. He will be seeing Dr. Kate in August. He will continue follow-up with the primary care physician in regards to neck discomfort. He will follow the diet to help prevent difficulty with the blood sugars. He has been instructed to decrease the tamsulosin to 1 daily. He should take this after supper. We asked him to return to our office in 6 months. He may call if he has any questions or concerns in the interim. Assessment & Plan (Attending) I agree with note created by Ann Esquivel PA-C. I reviewed the patient's chart and information with her. I have examined and evaluated the patient. I reviewed relevant clinical information and answered the patient's and/or family' s questions. CONSULTING SALES EXECUTIVE Total Time In Follow-Up I spent 25 minutes speaking to the patient in performing examination. I spent 15 minutes reviewing information on completing this note. [place] Total Time (Attending) In Follow-Up I spent 15 minutes examining and counseling the patient. CONSULTING SALES EXECUTIVE Copy To Henrry Ochoa M.D.; Kevin Kate MD, Urology
== END | disposition home or self-care (01) ==
LOC: C.ONC 13:20
PROVIDERS: ATTEND Physician Assistant Medical
DX: Z08 Encounter for follow-up examination after completed treatment for malignant neoplasm (principal); Z92.3 Personal history of irradiation; Z85.46 Personal history of malignant neoplasm of prostate

== ENCOUNTER → 2017-06-23 | Outpatient (CLI) | payer OTHER ==
[~2017-06-23] MED LIST changes: -FURO20TA PO
[2017-06-23 14:09] LABS: ALBUMIN 3.7 gm/dl (3.4-5.0); BLOOD UREA NITROGEN 22 mg/dl (7-18); CARBON DIOXIDE 23 mmol/L (21-32); CREATININE 1.44 mg/dl (0.60-1.40); GLUCOSE 156 mg/dl (70-99); PHOSPHORUS 3.1 mg/dl (2.5-4.9); POTASSIUM 3.8 mmol/L (3.5-5.1); SODIUM 138 mmol/L (136-145)
== END | disposition home or self-care (01) ==
LOC: C.LABPBG 08:59
PROVIDERS: ATTEND Internal Medicine Nephrology
DX: N18.3 Chronic kidney disease, stage 3 (moderate) (principal); N28.1 Cyst of kidney, acquired; N25.81 Secondary hyperparathyroidism of renal origin; D64.9 Anemia, unspecified; E55.9 Vitamin D deficiency, unspecified

== ENCOUNTER → 2017-10-01 | Outpatient (CLI) | payer OTHER ==
[~2017-10-01] MED LIST changes: -AMLO-110 PO; +AMLO5TAB3 PO
[2017-10-01 12:55] LABS: HEMATOCRIT 35.9 % (42-52); HEMOGLOBIN 12.1 g/dL (14.0-18.0); MEAN CELL VOLUME 89.5 fL (80-100); MEAN CORPUSCULAR HEMOGLOBIN 30.2 pg (25-34); MEAN CORPUSCULAR HGB CONC 33.7 g/dl (32-36); MEAN PLATELET VOLUME 10.7 fL (7.4-10.4); PLATELET COUNT 182 K/uL (130-400); RED CELL DISTRIBUTION WIDTH CV 14.9 % (11.5-14.5); RED CELL DISTRIBUTION WIDTH SD 48.6 fL (36.4-46.3); WHITE BLOOD COUNT 6.33 K/uL (4.8-10.8)
[2017-10-01 16:50] LABS: ALBUMIN 3.7 gm/dl (3.4-5.0); BLOOD UREA NITROGEN 22 mg/dl (7-18); CALCIUM 9.3 mg/dl (8.5-10.1); CARBON DIOXIDE 23 mmol/L (21-32); CREATININE 1.57 mg/dl (0.60-1.40); GLUCOSE 125 mg/dl (70-99); PHOSPHORUS 3.2 mg/dl (2.5-4.9); POTASSIUM 4.2 mmol/L (3.5-5.1); SODIUM 138 mmol/L (136-145)
== END | disposition home or self-care (01) ==
LOC: C.LABPBG 10:53
PROVIDERS: ATTEND Internal Medicine Nephrology
DX: I12.9 Hypertensive chronic kidney disease with stage 1 through stage 4 chronic kidney disease, or unspecified chronic kidney disease (principal); N18.3 Chronic kidney disease, stage 3 (moderate); N25.81 Secondary hyperparathyroidism of renal origin; C64.9 Malignant neoplasm of unspecified kidney, except renal pelvis; E55.9 Vitamin D deficiency, unspecified; D64.9 Anemia, unspecified